=== PATIENT | female | born 1970 | race Caucasian/White ===

== ENCOUNTER 2017-03-29 10:14 | Observation (INO) | payer MEDICARE, BC ==
[~2017-03-29 10:14] MED LIST: ACYCLOVIR PO; ACYCLOVIR15 GM AP; ACYCLOVIR15 GM TOP; ACYCLOVIR800 MG PO; ADULT ASPIRIN81 MG PO; ADULT LOW DOSE81 M1 PO; ALBUTEROL SULF8.5 G1 IH; ANTACID300 MG PO; ANTIVERT12.5 MG PO; APAP325 MG PO; ASPIR 8181 M1 PO; ASPIR 8181 MG; ASPIR 8181 MG PO; ASPIRIN EC81 MG PO; ATARAX25 MG PO; ATENOLOL25 MG; ATENOLOL50 MG; ATENOLOL50 MG PO; ATIVAN0.5 M1; ATIVAN0.5 M1 PO; AURYXIA PO; BACITRACIN OINTM1 GM EXT; BENADRYL25 M3 PO; BENTYL20 M1 PO; BYSTOLIC10 MG PO; CALCIUM ACETAT667 M3 PO; CEFTRIAXONE1 GM IV; CELLCEPT250 MG; CELLCEPT250 MG PO; CELLCEPT500 MG; CIPRO500 MG; CIPRO500 MG PO; CLINDAMYCIN HC300 M2 PO; COLACE100 MG PO; DAPSONE100 MG; DIALYSIS; DILAUDID2 MG PO; DIPHENOXYLATE-1 EAC1 PO; FLEXERIL10 MG PO; GABAPENTIN100 M1 PO; GABAPENTIN300 M1 PO; HYDROCODON-ACE1 EA16 PO; HYDROCORTISONE5 MG PO; KEFLEX500 MG PO; KEPPRA250 MG PO; KEPPRA500 MG PO; KIONEX15 GM/601 PO; LAMICTAL PO; LAMICTAL XR PO; LAMICTAL XR200 M1 PO; LAMICTAL XR200 MG PO; LAMICTAL100 MG; LAMICTAL100 MG PO; LAMICTAL150 MG; LAMICTAL150 MG PO; LAMISIL15 GM TP; LASIX40 M1 PO; LASIX40 MG PO; LASIX80 M1 PO; LASIX80 MG PO; LEVAQUIN; LIDODERM30 EA TP; LINZESS290 MC1 PO; LISINOPRIL5 MG; LOMOTIL 2.5-0.1 EACH PO; MAG-OXIDE400 MG; MAGNESIUM OXID400 M1 PO; MAGNESIUM OXID400 MG PO; MECLIZINE HCL12.5 M3 PO; MECLIZINE HCL12.5 MG PO; MIDODRINE HCL5 M1 PO; MIRALAX17 G2 PO; MOTRIN IB200 M1 PO; MULTI-VITAMIN1 TAB; MULTIVITAMIN1 CAP PO; MULTIVITAMIN1 TAB; MULTIVITAMINS1 EAC6 PO; NEURONTIN100 M1 PO; NEURONTIN100 MG PO; NEURONTIN300 MG PO; NEXIUM20 M1 PO; NEXIUM40 M1 PO; NEXIUM40 MG; NEXIUM40 MG PO; NORCO 5-325 TA1 EACH PO; NORCO 5/325 TAB1 TAB PO; NORVASC5 MG; NYSTATIN1 EAC1 PO; NYSTATIN10 GM; OMNICEF300 MG PO; OXYCODONE HCL5 MG PO; OXYCODONE/APAP PO; OXYCONTIN10 M1 PO; OXYCONTIN10 MG PO; PENTAMIDINE IH; PERCOCET 5-3251 EACH PO; PERCOCET 5/3251 TAB PO; PERCOCET 7.5-31 EACH PO; PERCOCET 7.5/321 TA1 PO; PREDNISONE1 MG PO; PREDNISONE10 MG PO; PREDNISONE20 M1 PO; PREDNISONE20 MG PO; PREDNISONE5 M1 PO; PREDNISONE5 MG PO; PROGRAF1 M1 PO; PROGRAF1 MG; PROGRAF1 MG PO; RAPAMUNE; RAPAMUNE1 MG; RAPAMUNE2 MG; REGLAN10 M2 PO; RENVELA800 M1 PO; RENVELA800 MG PO; ROCALTROL0.5 MC2 PO; ROXICODONE15 M1 PO; SENNA8.6 M PO; SENNA8.6 M2 PO; SENNA8.6 M3 PO; SENOKOT-S TABLE1 TAB; SENSIPAR30 MG PO; SENSIPAR60 M1 PO; SEVELAMER CARB800 MG PO; SODIUM BICARBO650 M1 PO; STOP THE FOLLOWING; TAMIFLU75 MG/CAP PO; TESSALON PERLE100 M1 PO; THYROID MED; TIZANADINE HCL4 MG PO; TRIMETHOPRIM100 MG PO; TUMS300 M1 PO; TYLENOL EXTRA500 M1 PO; TYLENOL PM EX-1 EAC4 PO; TYLENOL325 M2 PO; TYLENOL325 MG PO; TYLENOL650 MG PO; ULTRAM50 M1 PO; ULTRAM50 MG PO; VALCYTE450 MG; VALCYTE450 MG PO; VALTREX1000 M1 PO; VFEND PO; VFEND200 MG PO; VIBRAMYCIN100 M1 PO; VIBRAMYCIN100 MG PO; VICODIN 5/500 T1 TAB; VITAMIN D250000 UNI1 PO; ZANAFLEX4 MG PO; ZANTAC 7575 MG; ZANTAC150 MG; ZANTAC150 MG PO; ZOFRAN4 M1 PO; ZOFRAN4 M2 PO; ZOFRAN8 MG PO; [UNRECOGNIZED DRUG - OTHER] IH
[2017-03-29 10:53] LABS: BASO % 0.2 % (0-2); EOS % 8.9 % (0-7); EOSINOPHIL ABSOLUTE COUNT 0.4 tho/cmm (0.0-0.7); HCT-HEMATOCRIT 31.2 % (34.0-49.0); HGB-HEMOGLOBIN 10.4 gm/dl (12.0-15.5); IMMATURE GRANULOCYTES ABSOLUTE 0.02 tho/cmm (0-0.03); IMMATURE GRANULOCYTES PERCENT 0.5 % (0-0.3); LYMPH % 22.9 % (20-45); MCH (MEAN CORPUSCULAR HGB) 34.9 pg (28.0-32.0); MCHC MEAN CORPUSCULAR HGB CONC 33.3 % (32.0-36.0); MCV (MEAN CELL VOLUME) 104.7 fl (82.0-96.0); MONO % 7.7 % (0-12); MONOCYTE ABSOLUTE COUNT 0.3 tho/cmm (0.0-1.2); NEUTROPHIL ABSOLUTE COUNT 2.6 tho/cmm (1.6-8.0); NEUTROPHIL-AUTOMATED 2.6 tho/cmm (1.6-8.0); NEUTROPHILS % 59.8 % (40-80); PLATELET COUNT 108 tho/cmm (150-450); RED BLOOD COUNT 2.98 mil/cmm (4.00-5.20); RED CELL DISTRIBUTION WIDTH 14.2 % (12.4-16.4); WHITE BLOOD COUNT 4.3 tho/cmm (4.0-10.0)
[2017-03-29] MEDS ORDERED: LAMICTAL XR200 M1 PO (10:55)
[2017-03-29] MEDS ORDERED: CREON DR 36,001 EACH PO ×2 (10:56→10:57)
[2017-03-29 11:09] LABS: ALB/GLOB RATIO 0.8 (0.8-2.0); ALBUMIN 3.5 g/dl (3.5-5.0); ALKALINE PHOSPHATASE 89 U/L (33-138); ALT/SGPT 30 U/L (12-78); ANION GAP 14 mmol/L (0-20); AST/SGOT 16 U/L (10-40); BILIRUBIN,TOTAL 0.5 mg/dl (0-1.5); BLOOD UREA NITROGEN 21 mg/dl (6-24); CALCIUM 9.4 mg/dl (8.5-10.5); CARBON DIOXIDE-VENOUS 31 mmol/L (22-32); CHLORIDE 98 mmol/l (96-110); CREATININE 4.94 mg/dl (0.50-1.10); GLUCOSE 90 mg/dL (70-110); MAGNESIUM 2.2 mg/dl (1.8-2.6); POTASSIUM 4.1 mmol/L (3.7-5.1); SODIUM 139 mmol/L (135-145); eGFR VALUE FOR BLACK 12 mL/Min
[2017-03-29] MEDS ORDERED: NEXIUM40 M1 PO (11:41)
[2017-03-29] MEDS ORDERED: CALCIUM500 M4 PO (11:42)
[2017-03-29] MEDS ORDERED: CALCI-CHEW500 MG PO (11:42)
[2017-03-29] MEDS ORDERED: ZOFRAN8 M1 PO (13:25)
[2017-03-30] MEDS ORDERED: TOPROL XL25 M1 PO (15:51)
[2017-06-26] MEDS ORDERED: VALIUM2 M1 PO (09:00)
[2017-08-16] MEDS ORDERED: PREDNISONE PO (12:24)
== END 2017-03-30 17:10 ==
LOC: EDMED 10:14 → EMR2 13:31 → CAR1 13:52
PROVIDERS: Emergency Medicine; Physician Assistant; ADMIT Internal Medicine Cardiovascular Disease
DX: I34.0 Nonrheumatic mitral (valve) insufficiency (principal); I12.0 Hypertensive chronic kidney disease with stage 5 chronic kidney disease or end stage renal disease; N18.6 End stage renal disease; Z94.0 Kidney transplant status; Z79.899 Other long term (current) drug therapy; Z79.82 Long term (current) use of aspirin; Z88.8 Allergy status to other drugs, medicaments and biological substances; Z88.0 Allergy status to penicillin; Z88.2 Allergy status to sulfonamides
CPT/HCPCS: A9500; C8929; G0378; J2785

== ENCOUNTER 2017-04-02 13:08 | Emergency (ER) | payer MEDICARE, BC ==
[~2017-04-02 13:08] MED LIST changes: +CALCI-CHEW500 MG PO; +CALCIUM500 M4 PO; +CREON DR 36,001 EACH PO; +TOPROL XL25 M1 PO; +ZOFRAN8 M1 PO
[2017-06-26] MEDS ORDERED: VALIUM2 M1 PO (09:00)
[2017-08-16] MEDS ORDERED: PREDNISONE PO (12:24)
== END 2017-04-02 16:00 ==
LOC: EDMED 13:08
DX: R51 Headache (principal); K21.9 Gastro-esophageal reflux disease without esophagitis; I12.9 Hypertensive chronic kidney disease with stage 1 through stage 4 chronic kidney disease, or unspecified chronic kidney disease; J45.909 Unspecified asthma, uncomplicated; N18.9 Chronic kidney disease, unspecified; Z79.82 Long term (current) use of aspirin; Z79.899 Other long term (current) drug therapy
CPT/HCPCS: J1170; J2405

== ENCOUNTER 2017-04-24 22:20 | Inpatient (IN) | payer MEDICARE, BC ==
[2017-04-24 23:23] LABS: BASO % 0.2 % (0-2); EOS % 4.7 % (0-7); EOSINOPHIL ABSOLUTE COUNT 0.2 tho/cmm (0.0-0.7); HCT-HEMATOCRIT 25.6 % (34.0-49.0); HGB-HEMOGLOBIN 8.5 gm/dl (12.0-15.5); IMMATURE GRANULOCYTES ABSOLUTE 0.01 tho/cmm (0-0.03); IMMATURE GRANULOCYTES PERCENT 0.2 % (0-0.3); LYMPH % 20.6 % (20-45); LYMPH ABSOLUTE COUNT 0.9 tho/cmm (0.8-4.5); MCH (MEAN CORPUSCULAR HGB) 33.9 pg (28.0-32.0); MCHC MEAN CORPUSCULAR HGB CONC 33.2 % (32.0-36.0); MEAN PLATELET VOLUME 8.5 cmc (9.4-12.4); MONO % 9.8 % (0-12); MONOCYTE ABSOLUTE COUNT 0.4 tho/cmm (0.0-1.2); NEUTROPHIL ABSOLUTE COUNT 2.8 tho/cmm (1.6-8.0); NEUTROPHIL-AUTOMATED 2.8 tho/cmm (1.6-8.0); NEUTROPHILS % 64.5 % (40-80); PLATELET COUNT 100 tho/cmm (150-450); RED BLOOD COUNT 2.51 mil/cmm (4.00-5.20); RED CELL DISTRIBUTION WIDTH 13.7 % (12.4-16.4); WHITE BLOOD COUNT 4.3 tho/cmm (4.0-10.0)
[2017-04-24 23:41] LABS: ALB/GLOB RATIO 0.8 (0.8-2.0); ALBUMIN 3.4 g/dl (3.5-5.0); ALKALINE PHOSPHATASE 75 U/L (33-138); ANION GAP 14 mmol/L (0-20); AST/SGOT 12 U/L (10-40); BILIRUBIN,TOTAL 0.6 mg/dl (0-1.5); BLOOD UREA NITROGEN 33 mg/dl (6-24); CALCIUM 8.8 mg/dl (8.5-10.5); CARBON DIOXIDE-VENOUS 27 mmol/L (22-32); CHLORIDE 101 mmol/l (96-110); CREATININE 7.77 mg/dl (0.50-1.10); GLUCOSE 127 mg/dL (70-110); LIPASE 185 U/L (73-393); MAGNESIUM 2.2 mg/dl (1.8-2.6); POTASSIUM 3.5 mmol/L (3.7-5.1); SODIUM 138 mmol/L (135-145); eGFR VALUE FOR BLACK 7 mL/Min
[2017-04-24 23:43] LABS: ALT/SGPT 25 U/L (12-78)
[2017-04-25 08:12] LABS: BASO % 0.3 % (0-2); EOS % 6.5 % (0-7); EOSINOPHIL ABSOLUTE COUNT 0.2 tho/cmm (0.0-0.7); HGB-HEMOGLOBIN 8.6 gm/dl (12.0-15.5); IMMATURE GRANULOCYTES ABSOLUTE 0.01 tho/cmm (0-0.03); IMMATURE GRANULOCYTES PERCENT 0.3 % (0-0.3); LYMPH % 31.3 % (20-45); LYMPH ABSOLUTE COUNT 1.2 tho/cmm (0.8-4.5); MCH (MEAN CORPUSCULAR HGB) 34.1 pg (28.0-32.0); MCHC MEAN CORPUSCULAR HGB CONC 33.1 % (32.0-36.0); MCV (MEAN CELL VOLUME) 103.2 fl (82.0-96.0); MEAN PLATELET VOLUME 8.9 cmc (9.4-12.4); MONO % 8.1 % (0-12); MONOCYTE ABSOLUTE COUNT 0.3 tho/cmm (0.0-1.2); NEUTROPHILS % 53.5 % (40-80); PLATELET COUNT 94 tho/cmm (150-450); RED BLOOD COUNT 2.52 mil/cmm (4.00-5.20); RED CELL DISTRIBUTION WIDTH 13.8 % (12.4-16.4); WHITE BLOOD COUNT 3.7 tho/cmm (4.0-10.0)
[2017-04-25 08:17] LABS: PROTHROMBIN TIME 11.3 SECONDS (9.0-13.6)
[2017-04-25 08:24] LABS: ANION GAP 15 mmol/L (0-20); BLOOD UREA NITROGEN 36 mg/dl (6-24); CALCIUM 8.1 mg/dl (8.5-10.5); CARBON DIOXIDE-VENOUS 27 mmol/L (22-32); CHLORIDE 102 mmol/l (96-110); CREATININE 8.49 mg/dl (0.50-1.10); GLUCOSE 79 mg/dL (70-110); MAGNESIUM 2.3 mg/dl (1.8-2.6); PHOSPHOROUS 5.7 mg/dl (2.5-4.9); SODIUM 140 mmol/L (135-145); eGFR VALUE FOR BLACK 6 mL/Min
[2017-04-26 06:13] LABS: EOS % 6.7 % (0-7); EOSINOPHIL ABSOLUTE COUNT 0.2 tho/cmm (0.0-0.7); HCT-HEMATOCRIT 24.6 % (34.0-49.0); HGB-HEMOGLOBIN 8.1 gm/dl (12.0-15.5); IMMATURE GRANULOCYTES ABSOLUTE 0.01 tho/cmm (0-0.03); IMMATURE GRANULOCYTES PERCENT 0.3 % (0-0.3); LYMPH % 28.3 % (20-45); MCH (MEAN CORPUSCULAR HGB) 34.3 pg (28.0-32.0); MCHC MEAN CORPUSCULAR HGB CONC 32.9 % (32.0-36.0); MCV (MEAN CELL VOLUME) 104.2 fl (82.0-96.0); MEAN PLATELET VOLUME 8.5 cmc (9.4-12.4); MONO % 7.8 % (0-12); MONOCYTE ABSOLUTE COUNT 0.3 tho/cmm (0.0-1.2); NEUTROPHIL ABSOLUTE COUNT 2.1 tho/cmm (1.6-8.0); NEUTROPHIL-AUTOMATED 2.1 tho/cmm (1.6-8.0); NEUTROPHILS % 56.9 % (40-80); PLATELET COUNT 82 tho/cmm (150-450); RED BLOOD COUNT 2.36 mil/cmm (4.00-5.20); RED CELL DISTRIBUTION WIDTH 13.9 % (12.4-16.4); WHITE BLOOD COUNT 3.6 tho/cmm (4.0-10.0)
[2017-04-26 06:26] LABS: ANION GAP 14 mmol/L (0-20); BLOOD UREA NITROGEN 39 mg/dl (6-24); CALCIUM 8.9 mg/dl (8.5-10.5); CARBON DIOXIDE-VENOUS 26 mmol/L (22-32); CHLORIDE 101 mmol/l (96-110); GLUCOSE 81 mg/dL (70-110); POTASSIUM 4.1 mmol/L (3.7-5.1); SODIUM 137 mmol/L (135-145); eGFR VALUE FOR BLACK 5 mL/Min
--- NOTE | 2017-04-26 22:06 | NUR ---
VN ROUNDING-PATIENT STATES HAVING A DIFFICULT TIME WITH THE PAIN CONTROL FOR HER HEADACHE NOTHING SEEMS TO BE WORKING VERY WELL. SHE DID SAY THEY JUST GAVE HER SOME FIORCET SO HOPEFULLY THAT WILL HELP. I OFFERED A WARM OR COOL WASHCLOTH AND SHE SAID THOSE DONT HELP. WE DISCUSSED USING THE RELAXATION CHANNEL FOR SOFT MUSIC TO HELP WITH HER SLEEP ALSO. NO OTHER QUESTIONS OR CONCERNS AT THIS TIME. EMR REVIEWED
[2017-04-27 05:18] LABS: EOS % 4.7 % (0-7); EOSINOPHIL ABSOLUTE COUNT 0.2 tho/cmm (0.0-0.7); HCT-HEMATOCRIT 25.8 % (34.0-49.0); HGB-HEMOGLOBIN 8.4 gm/dl (12.0-15.5); LYMPH % 26.6 % (20-45); LYMPH ABSOLUTE COUNT 0.9 tho/cmm (0.8-4.5); MCH (MEAN CORPUSCULAR HGB) 33.7 pg (28.0-32.0); MCHC MEAN CORPUSCULAR HGB CONC 32.6 % (32.0-36.0); MCV (MEAN CELL VOLUME) 103.6 fl (82.0-96.0); MEAN PLATELET VOLUME 8.8 cmc (9.4-12.4); MONO % 7.5 % (0-12); MONOCYTE ABSOLUTE COUNT 0.2 tho/cmm (0.0-1.2); NEUTROPHILS % 61.2 % (40-80); PLATELET COUNT 75 tho/cmm (150-450); RED BLOOD COUNT 2.49 mil/cmm (4.00-5.20); RED CELL DISTRIBUTION WIDTH 13.8 % (12.4-16.4); WHITE BLOOD COUNT 3.2 tho/cmm (4.0-10.0)
[2017-04-27 05:33] LABS: ANION GAP 12 mmol/L (0-20); BLOOD UREA NITROGEN 21 mg/dl (6-24); CALCIUM 8.3 mg/dl (8.5-10.5); CARBON DIOXIDE-VENOUS 27 mmol/L (22-32); CHLORIDE 104 mmol/l (96-110); GLUCOSE 84 mg/dL (70-110); POTASSIUM 3.8 mmol/L (3.7-5.1); SODIUM 139 mmol/L (135-145); eGFR VALUE FOR BLACK 8 mL/Min
[2017-04-27 05:41] LABS: CREATININE 6.53 mg/dl (0.50-1.10)
[2017-04-27 05:53] LABS: TSH-THYROID STIMULATING HORM. 5.79 uIU/ml (0.40-3.80)
[2017-04-27 06:00] LABS: PROTHROMBIN TIME 11.4 SECONDS (9.0-13.6)
[2017-04-27 06:46] LABS: FIBRINOGEN 439 mg/dl (200-400)
[2017-04-27 06:54] LABS: PARTIAL THROMBOPLASTIN TIME 20 SECONDS (22-36)
--- NOTE | 2017-04-27 20:30 | NUR ---
VIRTUAL CARE NOTE: PT. SLEEPING ASSESSMENT DEFERRED.
[2017-04-28 06:00] LABS: EOS % 5.4 % (0-7); EOSINOPHIL ABSOLUTE COUNT 0.2 tho/cmm (0.0-0.7); HGB-HEMOGLOBIN 7.5 gm/dl (12.0-15.5); IMMATURE GRANULOCYTES ABSOLUTE 0.01 tho/cmm (0-0.03); IMMATURE GRANULOCYTES PERCENT 0.3 % (0-0.3); LYMPH ABSOLUTE COUNT 1.1 tho/cmm (0.8-4.5); MCH (MEAN CORPUSCULAR HGB) 34.6 pg (28.0-32.0); MCV (MEAN CELL VOLUME) 102.8 fl (82.0-96.0); MEAN PLATELET VOLUME 9.2 cmc (9.4-12.4); MONO % 7.3 % (0-12); MONOCYTE ABSOLUTE COUNT 0.3 tho/cmm (0.0-1.2); NEUTROPHIL ABSOLUTE COUNT 2.1 tho/cmm (1.6-8.0); NEUTROPHIL-AUTOMATED 2.1 tho/cmm (1.6-8.0); PLATELET COUNT 84 tho/cmm (150-450); RED BLOOD COUNT 2.17 mil/cmm (4.00-5.20); RED CELL DISTRIBUTION WIDTH 13.9 % (12.4-16.4); WHITE BLOOD COUNT 3.7 tho/cmm (4.0-10.0)
[2017-04-28 06:01] LABS: HCT-HEMATOCRIT 22.3 % (34.0-49.0); MCHC MEAN CORPUSCULAR HGB CONC 33.6 % (32.0-36.0)
[2017-04-28 06:19] LABS: ANION GAP 14 mmol/L (0-20); CALCIUM 8.3 mg/dl (8.5-10.5); CARBON DIOXIDE-VENOUS 26 mmol/L (22-32); CHLORIDE 102 mmol/l (96-110); GLUCOSE 75 mg/dL (70-110); POTASSIUM 4.1 mmol/L (3.7-5.1); SODIUM 138 mmol/L (135-145); eGFR VALUE FOR BLACK 5 mL/Min
[2017-04-28 06:27] LABS: BLOOD UREA NITROGEN 35 mg/dl (6-24); CREATININE 9.18 mg/dl (0.50-1.10)
[2017-04-28 15:11] LABS: IRON 67 ug/dl (37-170); IRON BINDING CAPACITY 165 ug/dl (250-450)
[2017-04-28] MEDS ORDERED: COLESTID1 GM PO (17:28)
[2017-04-28] MEDS ORDERED: FIORICET 50-301 EAC1 PO (17:29)
[2017-04-28] MEDS ORDERED: VITAMIN B-12250 MC2 PO (17:30)
[2017-06-26] MEDS ORDERED: VALIUM2 M1 PO (09:00)
[2017-08-16] MEDS ORDERED: PREDNISONE PO (12:24)
== END 2017-04-28 20:00 | DRG 393 ==
LOC: EDMED 22:20 → EMR2 04-25 02:09 → 5WD 04-25 03:10
PROVIDERS: Emergency Medicine; Internal Medicine; Internal Medicine Hematology & Oncology; Internal Medicine Nephrology; Registered Nurse; Specialist; ADMIT Family Medicine
PROC: 0DB98ZX Excision of Duodenum, Via Natural or Artificial Opening Endoscopic, Diagnostic (ICD-10-PCS; principal; 2017-04-26)
PROC: 0DBE8ZX Excision of Large Intestine, Via Natural or Artificial Opening Endoscopic, Diagnostic (ICD-10-PCS; 2017-04-26)
DX: K64.8 Other hemorrhoids (principal); N18.6 End stage renal disease; D61.818 Other pancytopenia; T86.12 Kidney transplant failure; I12.0 Hypertensive chronic kidney disease with stage 5 chronic kidney disease or end stage renal disease; N25.81 Secondary hyperparathyroidism of renal origin; D62 Acute posthemorrhagic anemia; Z94.0 Kidney transplant status; K21.9 Gastro-esophageal reflux disease without esophagitis; J45.909 Unspecified asthma, uncomplicated; Z79.82 Long term (current) use of aspirin; M19.90 Unspecified osteoarthritis, unspecified site; R19.7 Diarrhea, unspecified; R51 Headache; R91.1 Solitary pulmonary nodule; E03.9 Hypothyroidism, unspecified; E53.8 Deficiency of other specified B group vitamins; G62.9 Polyneuropathy, unspecified; G40.909 Epilepsy, unspecified, not intractable, without status epilepticus; Z88.1 Allergy status to other antibiotic agents; Z88.8 Allergy status to other drugs, medicaments and biological substances; Z88.0 Allergy status to penicillin; Z88.2 Allergy status to sulfonamides; Z91.041 Radiographic dye allergy status; D63.1 Anemia in chronic kidney disease; E83.39 Other disorders of phosphorus metabolism; E87.70 Fluid overload, unspecified
CPT/HCPCS: J0885; J1885; J2405; J3010; J3420; J7030